=== PATIENT | female | born 1990 | race American Indian/Alaskan Native ===

== ENCOUNTER 2021-11-15 17:13 | Emergency (ER) | payer SELFPAY ==
[2021-11-15 18:01] VITALS: BP 121/78
== END 2021-11-15 20:30 | disposition left against medical advice (07) ==
LOC: ED 17:13
DX: M54.9 Dorsalgia, unspecified (principal); Z53.21 Procedure and treatment not carried out due to patient leaving prior to being seen by health care provider

== ENCOUNTER 2021-11-16 21:30 | Emergency (ER) | payer BC ==
[2021-11-16 23:13] LABS: Bilirubin,Urine NEG (Negative); Blood,Urine NEG (Negative); Color,Urine Yellow (Yellow); Protein,Urine <15 mg/dL mg/dL (Negative); RBC,Urine < 1.0 /HPF (0.0-6.0); Urobilinogen,Urine < 2.0 mg/dL (<2.0); WBC,Urine < 1.0 /HPF (0.0-6.0)
[2021-11-16 23:56] LABS: Basophils % (Auto) 0.5 % (0.0-1.8); Eosinophils # (Auto) 0.2 K/mm3 (0.0-0.4); Hematocrit 37.5 % (30.3-42.9); Hemoglobin 11.9 gm/dl (10.1-14.3); Lymphocytes % (Auto) 41.4 % (13.4-35.0); Mean Corpuscular HGB Conc 32 % (30-34); Mean Corpuscular Volume 88 fl (79-97); Monocytes # (Auto) 0.3 K/mm3 (0.0-0.8); Monocytes % (Auto) 6.2 % (0.0-7.3); Platelet Count 165 K/mm3 (140-440); Red Blood Count 4.28 M/mm3 (3.65-5.03); Red Cell Distribution Width 12.9 % (13.2-15.2)
[2021-11-17 00:23] LABS: Alanine Aminotransferase 14 units/L (7-56); Blood Urea Nitrogen 11 mg/dL (7-17); Calcium 8.8 mg/dL (8.4-10.2); Hemolysis Index 4
[2021-11-17 00:24] LABS: BUN/Creatinine Ratio 16
[2021-11-17] MEDS ORDERED: FAMOTIDINE 20 MG/2 ML INJ IV ONE (04:08)
[2021-11-17] MEDS ORDERED: MORPHINE 4 MG/1 ML INJ IV ONE (04:08)
[2021-11-17] MEDS ORDERED: ONDANSETRON 4 MG/2 ML INJ IV ONE (04:08)
[2021-11-17 04:54] VITALS: BP 115/69
--- NOTE | 2021-11-17 04:58 | Emergency Department Report ---
ED Abdominal Pain HPI - General Chief Complaint: Abdominal Pain Stated Complaint: CHRONIC PANCREATITIS Source: patient Mode of arrival: Ambulatory Limitations: No Limitations - History of Present Illness Initial Comments: Patient is a 31-year-old -[place] female with a history of idiopathic chronic pancreatitis who presents to the ED with complaint of acute onset persis tent periumbilical abdominal pain that radiates to the mid posterior thoracic area with nausea and vomiting for the last 1 week, worse in the last 3 days. Patient states that she has not been able to keep anything down because of worsening pain and nausea and vomiting. Patient states that she usually experiences acute flareup of her chronic pancreatitis when she is close to having her menstrual cycle. Patient states that her LMP was October 17, 2021. Patient states that she suspect that her current symptoms are typical of her chronic pancreatitis flareup. Patient denies fever, chills, dizziness, syncope, chest pain, shortness of breath, dysuria, urinary frequency and urgency or vaginal bleeding or vaginal discharge. MD Complaint: abdominal pain, other (Nausea and vomiting) -: Sudden, week(s) (1) Location: periumbilical Radiation: back (Mid posterior thoracic area) Migration to: periumbilical Severity: severe Severity scale (0 -10): 8 Quality: cramping, sharp Consistency: constant Improves With: nothing Worsens With: eating, vomiting Context: other (Chronic pancreatitis) Associated Symptoms: denies other symptoms, nausea, vomiting. denies: diarrhea, fever, chills, dysuria, hematemesis, hematochezia, melena, other - Related Data LMP Date: 10/17/21 Previous Rx's Medication Instructions Recorded Last Taken Type Dicyclomine [Bentyl] 20 mg PO Q6H PRN #30 tablet 11/17/21 Unknown Rx Famotidine [Pepcid] 20 mg PO BID #60 tablet 11/17/21 Unknown Rx Ketorolac [Toradol] 10 mg PO Q8H PRN #20 tab 11/17/21 Unknown Rx Ondansetron [Zofran Odt] 4 mg PO Q8HR PRN #20 tab.rapdis 11/17/21 Unknown Rx Allergies Allergy/AdvReac Type Severity Reaction Status Date / Time amoxicillin Allergy Anaphylaxis Verified 11/16/21 22:45 ED Review of Systems ROS: Stated complaint: CHRONIC PANCREATITIS Other details as noted in HPI Constitutional: denies: chills, fever Eyes: denies: eye pain, eye discharge, vision change ENT: denies: ear pain, throat pain Respiratory: denies: cough, shortness of breath, wheezing Cardiovascular: denies: chest pain, palpitations Endocrine: no symptoms reported Gastrointestinal: abdominal pain (Periumbilical), nausea, vomiting. denies: diarrhea Genitourinary: denies: urgency, dysuria, discharge Musculoskeletal: back pain (Mid posterior thoracic area). denies: joint swelling, arthralgia Skin: denies: rash, lesions Neurological: denies: headache, weakness, paresthesias Psychiatric: denies: anxiety, depression Hematological/Lymphatic: denies: easy bleeding, easy bruising ED Past Medical Hx - Past Medical History Previous Medical History?: Yes Additional medical history: chronic pancreatitis - Surgical History Past Surgical History?: No - Social History Smoking Status: Never Smoker Substance Use Type: None - Medications Home Medications: Home Medications Medication Instructions Recorded Confirmed Last Taken Type Dicyclomine [Bentyl] 20 mg PO Q6H PRN #30 tablet 11/17/21 Unknown Rx Famotidine [Pepcid] 20 mg PO BID #60 tablet 11/17/21 Unknown Rx Ketorolac [Toradol] 10 mg PO Q8H PRN #20 tab 11/17/21 Unknown Rx Ondansetron [Zofran Odt] 4 mg PO Q8HR PRN #20 tab.rapdis 11/17/21 Unknown Rx ED Physical Exam - General Limitations: No Limitations General appearance: alert, in no apparent distress - Head Head exam: Present: atraumatic, normocephalic, normal inspection - Eye Eye exam: Present: normal appearance, PERRL, EOMI Pupils: Present: normal accommodation - ENT ENT exam: Present: normal exam, normal orophraynx, mucous membranes moist, TM's normal bilaterally, normal external ear exam - Neck Neck exam: Present: normal inspection, full ROM. Absent: tenderness - Respiratory Respiratory exam: Present: normal lung sounds bilaterally. Absent: respiratory distress, wheezes, rhonchi, stridor, chest wall tenderness, accessory muscle use, decreased breath sounds - Cardiovascular Cardiovascular Exam: Present: regular rate, normal rhythm, normal heart sounds. Absent: systolic murmur, diastolic murmur, rubs, gallop - GI/Abdominal GI/Abdominal exam: Present: soft, tenderness (Palpable periumbilical tenderness,), guarding, normal bowel sounds. Absent: rebound, rigid, hyperactive bowel sounds, hypoactive bowel sounds, organomegaly, bruit - Extremities Exam Extremities exam: Present: normal inspection, full ROM, normal capillary refill. Absent: tenderness - Back Exam Back exam: Present: normal inspection, full ROM. Absent: tenderness, CVA tenderness (R), CVA tenderness (L), muscle spasm, paraspinal tenderness, vertebral tenderness - Neurological Exam Neurological exam: Present: alert, oriented X3, CN II-XII intact, normal gait, reflexes normal - Psychiatric Psychiatric exam: Present: normal affect, normal mood - Skin Skin exam: Present: warm, dry, intact, normal color. Absent: rash ED Course Vital Signs 11/16/21 22:42 Temperature 98.4 F Pulse Rate 78 Respiratory 18 Rate Blood Pressure 115/69 O2 Sat by Pulse 98 Oximetry ED Medical Decision Making - Lab Data Result diagrams: 11/16/21 23:22 11/16/21 23:22 - Radiology Data Radiology results: report reviewed, image reviewed [address] [address] Cat Scan Report Signed Patient: ROBERTO FISH MR#: [id number] : 1990 Acct:[id number] Age/Sex: 31 / F ADM Date: 11/16/21 Loc: ED Attending Dr: Ordering Physician: LUANA SIDDIQI Date of Service: 11/17/21 Procedure(s): CT abdomen pelvis w con Accession Number(s): [id number] cc: LUANA SIDDIQI CT ABDOMEN AND PELVIS WITH CONTRAST INDICATION: PERIUMBILICAL ABDOMINAL PAIN CONTRAST: 100 cc Omnipaque 300 IV COMPARISON: None available. All CT scans at this location are performed using CT dose reduction for ALARA by means of automated exposure control. FINDINGS: Lung bases clear. No pneumoperitoneum. No abdominal masses. Gallbladder and bile ducts normal. No lymphadenopathy. No inflammation. No bowel obstruction. No urinary obstructive changes. Appendix not visualized. Rounded enhancement measuring 5.5 cm in the uterine fundus probably is in a leiomyoma. No adnexal masses seen. Minimal free fluid is nonspecific. No abdominal wall hernia. No obvious umbilical area inflammation. Probable minimal sebaceous cyst on the right near the umbilicus. IMPRESSION: No acute abnormalities are seen Signer Name: Ralph Nowak MD Signed: 11/17/2021 6:09 AM Workstation Name: [id number] Transcribed By: JORGE L Dictated By: Ralph Nowak MD Electronically Authenticated By: Ralph Nowak MD Signed Date/Time: 11/17/21608 DD/ 3 TD/TT: - Medical Decision Making This is a 31-year-old -[place] female with a history of idiopathic chronic pancreatitis who presents to the ED with complaint of acute onset persistent periumbilical abdominal pain that radiates to the mid posterior thoracic area with nausea and vomiting for the last 1 week, worse in the last 3 days. Patient states that she has not been able to keep anything down because of worsening pain and nausea and vomiting. Patient states that she usually experiences acute flareup of her chronic pancreatitis when she is close to having her menstrual cycle. Patient states that her LMP was October 17, 2021. Patient states that she suspect that her current symptoms are typical of her chronic pancreatitis flareup. In the ED, patient is alert and oriented x3 and is not in any distress. Patient was treated for pain in the ED. All lab test results were reviewed and are all nonactionable. Abdomen pelvis CT scan with IV contrast showed no acute abnormalities. On reevaluation, patient's pain is well controlled medication. Patient will discharge home on pain medications and advised to follow-up with her primary care physician in 7 to 10 days for reevaluation or return to the ED immediately if symptoms get worse. - Differential Diagnosis Chronic pancreatitis; GERD; gastroenteritis; gastritis; appendicitis; UTI Critical care attestation.: If time is entered above; I have spent that time in minutes in the direct care of this critically ill patient, excluding procedure time. ED Disposition Clinical Impression: Abdominal pain in female patient, Nausea and vomiting in adult patient Chronic pancreatitis Qualifiers: Pancreatitis type: idiopathic Qualified Code(s): K86.1 - Other chronic pancreatitis Disposition: 01 HOME / SELF CARE / HOMELESS Is pt being admited?: No Does the pt Need Aspirin: No Condition: Stable Instructions: Chronic Pancreatitis, Nausea and Vomiting, Adult, [id number], Abdominal Pain, Adult, [id number], Abdominal Pain (ED) Additional Instructions: All lab test results were reviewed and are all nonactionable. Abdomen pelvis CT scan with IV contrast showed no acute abnormalities. Therefore take medications with food, drink plenty of fluids, follow-up with your primary care physician in 7 to 10 days for reevaluation or return to the ED immediately if your symptoms get worse. Prescriptions: Dicyclomine [Bentyl] 20 mg PO Q6H PRN #30 tablet PRN Reason: Abdominal pain Famotidine [Pepcid] 20 mg PO BID #60 tablet Ketorolac [Toradol] 10 mg PO Q8H PRN #20 tab PRN Reason: Pain Ondansetron [Zofran Odt] 4 mg PO Q8HR PRN #20 tab.rapdis PRN Reason: Nausea Referrals: [facility] [Provider Group] - 7-10 days Forms: Work/School Release Form(ED) Time of Disposition: 06:22 Print Language: MALAY
--- NOTE | 2021-11-17 06:14 | Cat Scan Report ---
CT ABDOMEN AND PELVIS WITH CONTRAST INDICATION: PERIUMBILICAL ABDOMINAL PAIN CONTRAST: 100 cc Omnipaque 300 IV COMPARISON: None available. All CT scans at this location are performed using CT dose reduction for ALARA by means of automated e xposure control. FINDINGS: Lung bases clear. No pneumoperitoneum. No abdominal masses. Gallbladder and bile ducts norm al. No lymphadenopathy. No inflammation. No bowel obstruction. No urinary obstructive changes. Append ix not visualized. Rounded enhancement measuring 5.5 cm in the uterine fundus probably is in a leiomyoma. No adnexal mas ses seen. Minimal free fluid is nonspecific. No abdominal wall hernia. No obvious umbilical area infl ammation. Probable minimal sebaceous cyst on the right near the umbilicus. IMPRESSION: No acute abnormalities are seen Signer Name: Ralph Nowak MD Signed: 11/17/2021 6:09 AM Workstation Name: [id number]
== END 2021-11-17 07:00 | disposition home or self-care (01) ==
LOC: ED 21:30
DX: K86.1 Other chronic pancreatitis (principal); R10.33 Periumbilical pain; R11.2 Nausea with vomiting, unspecified; Z88.0 Allergy status to penicillin
CPT/HCPCS: 36415; 74177; 80053; 81001; 83690; 84703; 85025; 96374; 96375; 99284; J2270; J2405; J3490; Q9967